=== PATIENT | male | born 1965 | race African-American/Black ===

== ENCOUNTER 2025-05-17 08:33 | Emergency (ER) | payer MEDICAID ==
[~2025-05-17] VITALS: Ht 182.9 cm; Wt 104.0 kg
[2025-05-17 08:39] VITALS: TEMP 97.3
[2025-05-17] MEDS: IBUPROFEN 600 MG TABLET PO ONE (08:59)
[2025-05-17] MEDS: ACETAMINOPHEN 500 MG TABLET PO ONE (08:59)
[2025-05-17] MEDS ORDERED: ACET-3385 PO (09:05)
[2025-05-17] MEDS ORDERED: IBUP-1492 PO (09:05)
[2025-05-17 10:12] VITALS: BP 144/71; PULSE 67; RESP 18; O2SAT 99
== END 2025-05-17 10:18 | disposition home or self-care (01) ==
LOC: EMS 08:38
DX: S83.91XA Sprain of unspecified site of right knee, initial encounter (principal); M76.51 Patellar tendinitis, right knee; E11.9 Type 2 diabetes mellitus without complications; F20.9 Schizophrenia, unspecified; I10 Essential (primary) hypertension; F17.210 Nicotine dependence, cigarettes, uncomplicated; F15.90 Other stimulant use, unspecified, uncomplicated; Z59.00 Homelessness unspecified; X58.XXXA Exposure to other specified factors, initial encounter; Y93.02 Activity, running; Y92.89 Other specified places as the place of occurrence of the external cause; Y99.8 Other external cause status
CPT/HCPCS: 99283